=== PATIENT | male | born 1940 | race Caucasian/White ===

== ENCOUNTER → 2017-04-28 | Outpatient (CLI) | payer MEDICARE ==
[~2017-04-28] MED LIST: ALDACTONE25 MG PO; ASPIR-LOW81 MG PO; IPRAT-ALBUT 0.5-3 ML INH; LASIX20 MG PO; LOPRESSOR 25 MG25 MG PO; NORVASC 5 MG TAB5 MG PO
== END ==
LOC: EXRD 10:00
DX: J44.1 Chronic obstructive pulmonary disease with (acute) exacerbation (principal); R91.8 Other nonspecific abnormal finding of lung field
CPT/HCPCS: 71020

== ENCOUNTER → 2017-05-12 | Outpatient (CLI) | payer MEDICARE | LOC: HEART 5 08:32 | DX: J44.9 Chronic obstructive pulmonary disease, unspecified (principal); R60.9 Edema, unspecified; R06.02 Shortness of breath | CPT/HCPCS: 94060; 94729 ==

== ENCOUNTER → 2017-08-06 | Outpatient (CLI) | payer MEDICARE | LOC: HEART 5 10:47 | DX: J96.90 Respiratory failure, unspecified, unspecified whether with hypoxia or hypercapnia (principal) | CPT/HCPCS: 71020-FX; 94060; 94729 ==